=== PATIENT | male | born 1950 | race African-American/Black ===

== ENCOUNTER 2016-11-20 21:29 | Emergency (ER) | payer OTHER ==
[~2016-11-20] VITALS: Ht 182.9 cm; Wt 86.2 kg
--- NOTE | ~2016-11-20 | EKG ---
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: ALLISON : 1950 Requested By: Fabiola Mazariegos Order Number: [id number] MD: Nahun Ron Measurements Intervals [place] Rate: 78 P: 77 MO: 172 QRS: 32 QRSD: 81 T: -75 QT: 422 QTc: 481 Interpretive Statements Sinus rhythm Left ventricular hypertrophy Borderline T abnormalities, inferior leads Borderline prolonged QT interval Compared to ECG 01/17/2016 02:49:07 ST and T wave abnormality is less prominent Atrial fibrillation no longer present Electronically Signed On 11-21-2016 12:46:15 CDT by Nahun Ron [email or web address] <ELECTRONICALLY SIGNED> By: Nahun Ron MD, [facility] 11/21/16 1246 2220 2220 Nahun Ron MD, [facility] /EPI
[~2016-11-20 21:29] MED LIST: AMLODIPINE BESY10 MG PO; ASPIR 8181 MG PO; CARAFATE 1 GM TA1 G1 PO; CARAFATE 11 GM/10 M1 PO; CARDIZEM CD 18180 M3 PO; CEFTIN500 MG PO; CHLORPROMAZINE25 M1 PO; CITRATE OF MAG296 ML PO; COLACE 100 MG100 MG PO; COLACE100 MG PO; COUMADIN 2 MG TA2 M1 PO; COUMADIN 5 MG TA5 M1 PO; COUMADIN7.5 MG PO; DUONEB 2.5-0.5 M3 ML INH; HYDROCHLOROTHIA25 M2 PO; LIPITOR 20 MG T20 M1 PO; MINOXIDIL10 MG PO; MIRALAX17 GM PO; NORCO 5-325 TA1 EACH PO; NORFLEX100 MG PO; OXYBUTYNIN 5 MG5 M1 PO; OXYBUTYNIN 5 MG5 M2 PO; PAXIL10 MG PO; PHENERGAN 25 MG25 M1 PO; POTASSIUM20 PO; PROMS25 WY RECTAL; PROTONIX40 M1 PO; SENOKOT-S1 TA1 PO; TUMS PO
[2016-11-20 22:53] LABS: ABSOLUTE NEUTROPHILS 3.6 thou/uL (1.4-8.2); BASOPHILS 0.8 % (0.0-2.0); HEMATOCRIT 38.5 % (42.0-52.0); HEMOGLOBIN 13.2 gm/dL (14.0-18.0); LYMPHOCYTES 22.4 % (24.0-44.0); MCH 29.9 pg (26.0-34.0); MCHC 34.4 g/dL (28.0-37.0); MCV 86.9 fL (80.0-100.0); MONOCYTES 9.9 % (1.0-8.0); PLATELET COUNT 289 thou/uL (150-400); POLYS 57.9 % (36.0-66.0); RBC 4.43 mil/uL (4.50-6.00); RDW 15.4 % (10.5-14.5); WBC 6.3 thou/uL (4.0-11.0)
[2016-11-20 22:54] LABS: MANUAL DIFF NO
[2016-11-20 23:07] LABS: ANION GAP 8 mmol/L (7-16); BUN 17 mg/dL (7-18); CALCIUM 8.8 mg/dL (8.5-10.1); CHLORIDE 104 mmol/L (98-107); CO2 28 mmol/L (21-32); CREATININE 1.4 mg/dL (0.7-1.3); GLUCOSE 86 mg/dL (74-106); POTASSIUM 3.5 mmol/L (3.5-5.1); SODIUM 140 mmol/L (136-145)
[2016-11-20 23:10] LABS: TROPONIN-I < 0.04 ng/mL (<0.04-0.07)
[2016-11-20 23:13] LABS: APTT 56.9 Seconds (24.5-32.8); INR 3.2; PROTIME 32.5 Seconds (9.3-11.4)
== END 2016-11-21 00:30 | disposition home or self-care (01) ==
LOC: ER 21:29
PROVIDERS: Emergency Medicine
DX: J90 Pleural effusion, not elsewhere classified (principal); I11.0 Hypertensive heart disease with heart failure; I50.9 Heart failure, unspecified; I25.2 Old myocardial infarction; I48.91 Unspecified atrial fibrillation; F17.210 Nicotine dependence, cigarettes, uncomplicated; Z86.73 Personal history of transient ischemic attack (TIA), and cerebral infarction without residual deficits; Z98.890 Other specified postprocedural states; Z88.0 Allergy status to penicillin